=== PATIENT | male | born 1940 | race Asian ===

== ENCOUNTER 2023-07-10 08:46 | Day surgery (SDC) | payer OTHER ==
[2023-07-09 09:16] VITALS: BMI 27.9
[2023-07-10] MEDS ORDERED: MIDAZOLAM HCL 2 MG/2 ML SINGLE DOSE VIAL ONE (10:30)
[2023-07-10] MEDS ORDERED: PROPOFOL 20 ML ONE (10:30)
[2023-07-10] MEDS ORDERED: BUPIVACAINE HCL/PF 0.5% (5MG/ML) 10 ML VIAL ONE (10:36)
[2023-07-10] MEDS ORDERED: MORPHINE SULFATE 10 MG/1 ML *VIAL ONE (10:47)
[2023-07-10] MEDS ORDERED: DEXAMETHASONE SOD PHOSPHATE 4 MG/1 ML VIAL ONE (11:09)
[2023-07-10] MEDS ORDERED: ONDANSETRON 4 MG/2 ML VIAL ONE ×2 (11:09→12:05)
[2023-07-10] MEDS ORDERED: ceFAZolin SODIUM 1 GM VIAL ONE (11:11)
[2023-07-10] MEDS ORDERED: ONDANSETRON 4 MG/2 ML VIAL IVPUSH PRN (12:22)
[2023-07-10] MEDS ORDERED: oxyCODONE HCL 5 MG TABLET PO PRN (12:22)
[2023-07-10] MEDS ORDERED: ACETAMINOPHEN 1000 MG/100 ML BAG IVPB ONE (12:22)
[2023-07-10] MEDS ORDERED: LACTATED RINGERS SOLUTION 1,000 ML IV SCH (12:30)
[2023-07-10 13:43] VITALS: TEMP 97.5
[2023-07-10 14:03] VITALS: BP 136/70; PULSE 73; RESP 16
== END 2023-07-10 14:30 | disposition home or self-care (01) ==
LOC: FASU 08:46
PROVIDERS: ATTEND Orthopaedic Surgery
PROC: 0SBC4ZZ Excision of Right Knee Joint, Percutaneous Endoscopic Approach (ICD-10-PCS; 2023-07-10)
PROC: 0SQC4ZZ Repair Right Knee Joint, Percutaneous Endoscopic Approach (ICD-10-PCS; 2023-07-10)
PROC: 0SBC4ZZ Excision of Right Knee Joint, Percutaneous Endoscopic Approach (ICD-10-PCS; principal; 2023-07-10 11:35)
DX: S83.241A Other tear of medial meniscus, current injury, right knee, initial encounter (principal); M25.661 Stiffness of right knee, not elsewhere classified; M23.8X1 Other internal derangements of right knee; M94.261 Chondromalacia, right knee; M93.261 Osteochondritis dissecans, right knee; M67.261 Synovial hypertrophy, not elsewhere classified, right lower leg; M67.51 Plica syndrome, right knee; X58.XXXA Exposure to other specified factors, initial encounter; Y93.9 Activity, unspecified; Y92.9 Unspecified place or not applicable
CPT/HCPCS: 94760